=== PATIENT | female | born 2000 | race Caucasian/White ===

== ENCOUNTER 2022-08-03 10:15 | Inpatient (IN) | payer MEDICAID ==
[~2022-08-03] VITALS: Ht 157.5 cm; Wt 74.4 kg
[2022-08-03] MEDS ORDERED: LACTATED RINGERS 1,000 ML IV SCH (10:55)
[2022-08-03] MEDS ORDERED: CARBOPROST 250 MCG/ML AMP IM PRN (10:55)
[2022-08-03] MEDS ORDERED: METHYLERGONOVINE 0.2 MG/ML AMP IM PRN ×2 (10:55→11:30)
[2022-08-03] MEDS ORDERED: OXYTOCIN 20 UNITS in LACTATED RINGERS 1,000 ML IV SCH (10:55)
[2022-08-03 11:14] LABS: BASOPHILS % (AUTO) 0.2 % (0.0-2.0); EOSINOPHILS # (AUTO) 0.1 K/uL (0-0.4); EOSINOPHILS % (AUTO) 0.7 % (0.0-4.0); HEMATOCRIT 37.9 % (36-48); HEMOGLOBIN 13.2 g/dL (12.0-16.0); LYMPHOCYTES # (AUTO) 1.4 K/uL (2.5-16.5); LYMPHOCYTES % (AUTO) 18.5 % (20.5-51.1); MEAN CORPUSCULAR HEMOGLOBIN 33 pg (27-31); MEAN CORPUSCULAR HGB CONC 35 g/dL (33-37); MEAN CORPUSCULAR VOLUME 94.9 fL (80-94); MONOCYTES # (AUTO) 0.5 K/uL (0.8-1.0); MONOCYTES % (AUTO) 6.6 % (1.7-9.3); NEUTROPHILS # (AUTO) 5.7 K/uL (1.8-7.7); PLATELET COUNT (AUTO) 147 K/uL (140-450); RED CELL DISTRIBUTION WIDTH 13.5 % (11.6-13.7); WHITE BLOOD COUNT (AUTO) 7.8 K/uL (4.8-10.8)
[2022-08-03 11:15] VITALS: BP 123/86
[2022-08-03] MEDS ORDERED: IBUPROFEN 800 MG TAB ONE (11:28)
[2022-08-03 11:30] LABS: PROTHROMBIN TIME 9.3 secs (10.8-13.4)
[2022-08-03] MEDS ORDERED: BENZOCAINE/MENTHOL 20%-0.5% 60 GM CAN TP PRN (11:30)
[2022-08-03] MEDS ORDERED: OXYTOCIN 10 UNITS/ML VIAL IM PRN (11:30)
[2022-08-03] MEDS ORDERED: bisacodyL 5 MG TABEC PO PRN (11:30)
[2022-08-03] MEDS ORDERED: IBUPROFEN 600 MG TAB PO PRN (11:30)
[2022-08-03] MEDS ORDERED: SIMETHICONE 80 MG TAB.CHEW PO PRN (11:30)
[2022-08-03] MEDS ORDERED: MEASLES, MUMPS, AND RUBELLA 1 VIAL SQVAC ONE (11:30)
[2022-08-03] MEDS ORDERED: DOCUSATE SODIUM 100 MG GELCAP PO PRN (11:30)
[2022-08-03] MEDS ORDERED: METHYLERGONOVINE 0.2 MG TAB PO PRN (11:30)
[2022-08-03] MEDS ORDERED: METHYLERGONOVINE 0.2 MG/ML AMP ONE (11:39)
[2022-08-03 11:55] LABS: ALBUMIN 2.5 g/dL (3.4-5.0); ANION GAP 17.2 (8-16); CARBON DIOXIDE 22.2 mmol/L (21-32); CREATININE 0.5 mg/dL (0.6-1.3); POTASSIUM 3.4 mmol/L (3.5-5.1); TOTAL BILIRUBIN 0.3 mg/dL (0.0-1.0)
[2022-08-03] MEDS ORDERED: MISOPROSTOL 200 MCG TAB ONE (12:21)
[2022-08-03] MEDS ORDERED: MISOPROSTOL 100 MCG TAB PO SCH (13:30)
[2022-08-03] MEDS: IBUPROFEN 800 MG TAB PO PRN ×2 (13:32→18:18)
[2022-08-03] MEDS ORDERED: AMPICILLIN 2,000 MG in NACL 0.9% 100 ML IV SCH (13:39)
[2022-08-04] MEDS ORDERED: FLU VACCINE QS2022-23 0.5 ML SYR IMVAC ONE (06:30)
[2022-08-04 08:43] LABS: HEMATOCRIT 35.7 % (36-48); HEMOGLOBIN 12.6 g/dL (12.0-16.0)
--- NOTE | 2022-08-04 10:45 | NUR ---
PATIENT HAS BEEN SCREENED AND CATEGORIZED LOW NUTRITION RISK. PATIENT WILL BE SEEN WITHIN 7 DAYS OF ADMISSION. 08/10/22 REVIEWED BY BEENA B[address]
[2022-08-04] MEDS: IBUPROFEN 800 MG TAB PO PRN (15:34)
[2022-08-05 06:07] LABS: HEPATITIS B SURFACE ANTIGEN Negative (Negative)
== END 2022-08-04 20:40 | disposition home or self-care (01) | DRG 560 ==
LOC: MLD 10:15 → MFCC 14:15
PROVIDERS: ADMIT Obstetrics & Gynecology; ATTEND Obstetrics & Gynecology
PROC: 10E0XZZ Delivery of Products of Conception, External Approach (ICD-10-PCS; principal; 2022-08-03)
PROC: 10907ZC Drainage of Amniotic Fluid, Therapeutic from Products of Conception, Via Natural or Artificial Opening (ICD-10-PCS; 2022-08-03)
PROC: 30233S1 Transfusion of Nonautologous Globulin into Peripheral Vein, Percutaneous Approach (ICD-10-PCS; 2022-08-04)
DX: O80 Encounter for full-term uncomplicated delivery (principal); Z37.0 Single live birth; Z20.822 Contact with and (suspected) exposure to COVID-19; Z3A.37 37 weeks gestation of pregnancy
CPT/HCPCS: 36415; 80053; 85018; 85025; 85610; 85730; 86592; 86762; 86850; 86870; 86886; 86900; 86901; 87340; 87653-90; 90715; J2210; J2790

== ENCOUNTER 2023-06-29 13:02 | Inpatient (IN) | payer MEDICAID ==
[~2023-06-29] VITALS: Ht 160 cm; Wt 83.9 kg
[2023-06-29] MEDS ORDERED: PREN-543 PO (13:46)
[2023-06-29] MEDS ORDERED: LACTATED RINGERS 1,000 ML IV SCH (13:50)
[2023-06-29] MEDS ORDERED: CARBOPROST 250 MCG/ML AMP IM ONE (14:08)
[2023-06-29] MEDS ORDERED: MISOPROSTOL 100 MCG TAB VG SCH (14:10)
[2023-06-29] MEDS ORDERED: CARBOPROST 250 MCG/ML AMP IM PRN (14:10)
[2023-06-29] MEDS ORDERED: METHYLERGONOVINE 0.2 MG/ML AMP IM PRN ×3 (14:10→16:50)
[2023-06-29 14:19] LABS: BASOPHILS % (AUTO) 0.2 % (0.0-2.0); EOSINOPHILS % (AUTO) 0.7 % (0.0-4.0); HEMOGLOBIN 11.1 g/dL (12.0-16.0); LYMPHOCYTES # (AUTO) 0.9 K/uL (2.5-16.5); LYMPHOCYTES % (AUTO) 14.7 % (20.5-51.1); MEAN CORPUSCULAR HEMOGLOBIN 29 pg (27-31); MEAN CORPUSCULAR HGB CONC 34 g/dL (33-37); MEAN CORPUSCULAR VOLUME 86.4 fL (80-94); MONOCYTES # (AUTO) 0.3 K/uL (0.8-1.0); MONOCYTES % (AUTO) 5.2 % (1.7-9.3); NEUTROPHILS % (AUTO) 79.2 % (42.2-75.2); PLATELET COUNT (AUTO) 156 K/uL (140-450); RED BLOOD CELL COUNT(AUTO) 3.82 MIL/uL (4.20-5.40); RED CELL DISTRIBUTION WIDTH 16.5 % (11.6-13.7); WHITE BLOOD COUNT (AUTO) 6.3 K/uL (4.8-10.8)
[2023-06-29] MEDS ORDERED: MISOPROSTOL 200 MCG TAB RC SCH (14:30)
[2023-06-29 14:38] LABS: ALBUMIN 2.5 g/dL (3.4-5.0); ANION GAP 13.9 (8-16); CALCIUM 8.4 mg/dL (8.5-10.1); CARBON DIOXIDE 21.6 mmol/L (21-32); CREATININE 0.6 mg/dL (0.6-1.3); POTASSIUM 3.5 mmol/L (3.5-5.1); TOTAL BILIRUBIN 0.2 mg/dL (0.0-1.0); TOTAL PROTEIN, SERUM 6.3 g/dL (6.4-8.2)
[2023-06-29] MEDS ORDERED: OXYTOCIN 20 UNITS/LR PREMIX 1,000 ML IV ONE ×2 (14:48→18:44)
[2023-06-29] MEDS ORDERED: TEMAZEPAM 15 MG CAP PO PRN ×2 (15:00→16:50)
[2023-06-29] MEDS ORDERED: oxyCODONE/APAP 5/325 MG 1 TAB TAB PO PRN ×4 (15:00→19:00)
[2023-06-29] MEDS ORDERED: BENZOCAINE/MENTHOL 20%-0.5% 60 GM CAN TP PRN ×2 (15:00→16:50)
[2023-06-29] MEDS ORDERED: MEASLES, MUMPS, AND RUBELLA 1 VIAL SQVAC ONE (15:00)
[2023-06-29] MEDS ORDERED: OXYTOCIN 10 UNITS/ML VIAL IM PRN ×2 (15:00→16:50)
[2023-06-29] MEDS ORDERED: MISOPROSTOL 200 MCG TAB PO SCH (15:10)
[2023-06-29] MEDS ORDERED: MEASLES, MUMPS, AND RUBELLA 1 VIAL SQVAC SCH (15:10)
[2023-06-29 15:28] LABS: HIV RAPID SCREEN NON-REACTIVE (NON REACTIV)
[2023-06-29 15:43] LABS: APPEARANCE,URINE CLEAR (CLEAR); BILIRUBIN,URINE NEGATIVE (NEGATIVE); BLOOD, URINE 1+ (NEGATIVE); COLOR,URINE YELLOW (YELLOW); LEUKOCYTE ESTERASE ,URINE NEGATIVE (NEGATIVE); NITRITE, URINE NEGATIVE (NEGATIVE); PROTEIN,URINE NEGATIVE (NEGATIVE); UGLUCOSE NEGATIVE (NEGATIVE); UROBILINOGEN,URINE 0.2 EU/dL (0.2 - 1)
[2023-06-29 15:54] LABS: BACTERIA,URINE FEW /HPF (None Seen); SQUAMOUS EPITHELIAL CELL,UR 0-3 (FEW) /LPF (0-3 (FEW)); WBC,URINE 0-5 /HPF (0-5)
[2023-06-29] MEDS ORDERED: hydrALAZINE 20 MG/ML VIAL IVP SCH (16:06)
[2023-06-29 16:30] VITALS: BP 140/91; PULSE 105; RESP 18; TEMP 98
[2023-06-29] MEDS ORDERED: MORPHINE SULFATE 10 MG/ML VIAL IVP PRN (16:40)
[2023-06-29] MEDS ORDERED: ONDANSETRON 4 MG/2 ML VIAL IVP SCH (16:40)
[2023-06-29] MEDS ORDERED: IBUPROFEN 800 MG TAB PO PRN (16:50)
[2023-06-29] MEDS ORDERED: METHYLERGONOVINE 0.2 MG TAB PO PRN (16:50)
[2023-06-29] MEDS ORDERED: OXYTOCIN 20 UNITS in LACTATED RINGERS 1,000 ML IV SCH (16:55)
[2023-06-29 17:01] VITALS: BP 141/69; PULSE 110; RESP 18; O2SAT 99
[2023-06-29 20:06] LABS: AMPHETAMINE, URINE POSITIVE ng/ml (NEG <=1000); BARBITURATE, URINE NEGATIVE ng/ml (NEG <=200); BENZODIAZEPINE, URINE NEGATIVE ng/mL (NEG <=200); CANNABINOID, URINE NEGATIVE ng/mL (NEG <=50); COCAINE, URINE NEGATIVE ng/mL (NEG <=300); OPIATE, URINE POSITIVE ng/mL (NEG <=2000); PHENCYCLIDINE SCREEN,URINE NEGATIVE ng/mL (NEG <=25)
[2023-06-29] MEDS ORDERED: DOCUSATE SOD/SENNA 50/8.6 MG 1 TAB PO SCH ×2 (21:00)
[2023-06-30 06:15] LABS: HEMATOCRIT 26.9 % (36-48); HEMOGLOBIN 9.3 g/dL (12.0-16.0)
[2023-06-30 16:41] LABS: RAPID PLASMA REAGIN NON-REACTIVE (Non Reactiv)
[2023-06-30] MEDS ORDERED: DOCUSATE SOD/SENNA 50/8.6 MG 1 TAB PO SCH (21:00)
== END 2023-06-30 15:30 | disposition home or self-care (01) | DRG 560 ==
LOC: MLD 13:02 → MFCC 06-30 00:35
PROVIDERS: ADMIT Obstetrics & Gynecology; ATTEND Obstetrics & Gynecology
PROC: 10E0XZZ Delivery of Products of Conception, External Approach (ICD-10-PCS; principal; 2023-06-29)
PROC: 3E0234Z Introduction of Serum, Toxoid and Vaccine into Muscle, Percutaneous Approach (ICD-10-PCS; 2023-06-30)
DX: O80 Encounter for full-term uncomplicated delivery (principal); Z37.0 Single live birth; D62 Acute posthemorrhagic anemia; Z20.822 Contact with and (suspected) exposure to COVID-19; Z3A.36 36 weeks gestation of pregnancy
CPT/HCPCS: 36415; 59409; 80053; 80305; 81001; 85018; 85025; 86592; 86762; 86850; 86886; 86900; 86901; 87340; 87653-90; J0360; J2270; J2590; J2790; J3490